=== PATIENT | female | born 1940 | race Caucasian/White ===

== ENCOUNTER 2016-08-27 18:58 | Emergency (ER) | payer BC, OTHER ==
[~2016-08-27] VITALS: Ht 152.4 cm; Wt 71.0 kg
[2016-08-27 19:20] VITALS: Ht 152.4 cm; Wt 71.0 kg
[2016-08-27 20:09] LABS: ADD UMIC YES; UR ASCORBIC ACID NEGATIVE (NEGATIVE); UR BACTERIA MODERATE /HPF (NONE SEEN); UR BILIRUBIN (Dip) NEGATIVE (NEGATIVE); UR BLOOD (Dip) 1+ mg/dL (NEGATIVE); UR CLARITY CLOUDY (CLEAR); UR COLOR YELLOW (YELLOW); UR GLUCOSE (Dip) NEGATIVE (NEGATIVE); UR KETONES (Dip) NEGATIVE (NEGATIVE); UR LEUKOCYTE ESTERASE (Dip) 3+ Leu/ul (NEGATIVE); UR NITRITE (Dip) NEGATIVE (NEGATIVE); UR RBC 8 /HPF (0-5); UR SPECIFIC GRAVITY (Dip) 1.011 (1.003-1.030); UR SQUAMOUS EPITHELIAL CELL FEW /HPF (FEW); UR TOTAL PROTEIN (Dip) NEGATIVE (NEGATIVE); UR UROBILINOGEN (Dip) NEGATIVE (NEGATIVE); UR WBC CLUMPS MANY /HPF (NONE SEEN)
[2016-08-27] MEDS ORDERED: FLUC150T17 PO (20:29)
[2016-08-27] MEDS ORDERED: CEPH-443 PO (20:29)
[2016-08-27] MEDS ORDERED: CLOT30CR24 TOP (20:29)
[2016-08-27] MEDS ORDERED: ACETAMINOPHEN 325 MG TAB PO ONE (20:30)
[2016-08-27] MEDS ORDERED: FLUCONAZOLE 150 MG TAB PO ONE (20:30)
--- NOTE | 2016-08-27 20:41 | ERD ---
ER Documentation Chief Complaint Date/Time DATE: 08/27/16 TIME: 20:32 Chief Complaint vag dc yeast - saw MD already took viral med did not work HPI 76-year-old female with a history of diabetes controlled with metformin, presents to the emergency department for complaints of vaginal itching with white discharge and inflammation 2 weeks. Patient was seen by primary care and recommended to start taking Diflucan and metronidazole topical cream. Patient states that her symptoms have continued despite her treatment regimen. Patient notes associated dysuria and rates her discomfort at a 9 out of 10 constant burning and itching sensation worse with pressure to the area. She denies fever, chills, nausea, vomiting, abdominal pain or diarrhea. Patient states she has an appointment scheduled with an EVALUATION ADVISOR specialist in 1 week but is unable to wait due to her amount of discomfort. ROS All systems reviewed and are negative except as per history of present illness. Medications Home Meds Active Scripts Cephalexin* (Keflex*) 500 Mg Capsule, 500 MG PO QID for 7 Days, CAP Prov:EMMANUEL CLEARY PA-C 08/27/16 Clotrimazole* (Clotrimazole* AF) 1% - 30 Gm Cream.gm., 1 APPLIC TOP BID for 7 Days, TUB Prov:EMMANUEL CLEARY PA-C 08/27/16 Fluconazole* (Diflucan*) 150 Mg Tablet, 150 MG PO ONCE, #1 TAB Prov:EMMANUEL CLEARY PA-C 08/27/16 PMhx/Soc History of Surgery: No Anesthesia Reaction: No Hx Neurological Disorder: No Hx Respiratory Disorders: No Hx Cardiac Disorders: Yes (htn) Hx Psychiatric Problems: No Hx Miscellaneous Medical Probl: No Hx Alcohol Use: No Hx Substance Use: No Hx Tobacco Use: No Smoking Status: Never smoker Physical Exam Vitals Vital Signs Date Time Temp Pulse Resp B/P Pulse Ox O2 Delivery O2 Flow Rate FiO2 08/27/16 19:20 97.8 75 20 136/78 94 Physical Exam Const: Well-developed, well-nourished, in mild distress Head: Atraumatic Eyes: Normal Conjunctiva ENT: Normal External Ears, Nose and Mouth. Neck: Full range of motion..~ No meningismus. Resp: Clear to auscultation bilaterally Cardio: Regular rate and rhythm, no murmurs Abd: Soft, non tender, non distended. Normal bowel sounds Skin: No petechiae or rashes Back: No midline or flank tenderness Ext: No cyanosis, or edema Neur: Awake and alert Psych: Normal Mood and Affect G/U: External vulva is swollen and erythematous with multiple satellite lesions. marked tenderness to palpation. White discharge present. Negative whiff test Results 24 hrs Laboratory Tests Test 08/27/16 19:45 Urine Color YELLOW Urine Clarity CLOUDY Urine pH 5.0 Urine Specific [place] 1.011 Urine Ketones NEGATIVEmg/dL Urine Nitrite NEGATIVEmg/dL Urine Bilirubin NEGATIVEmg/dL Urine Urobilinogen NEGATIVEmg/dL Urine Leukocyte Esterase 3+Yaron/ul Urine Microscopic RBC 8/HPF Urine Microscopic WBC > 182/HPF Urine Squamous Epithelial Cells FEW/HPF Urine Bacteria MODERATE/HPF Urine Hemoglobin 1+mg/dL Urine Glucose NEGATIVEmg/dL Urine Total Protein NEGATIVEmg/dl Procedures/MDM This is a 76-year-old female with a history of diabetes who presents the emergency department for complaints of vaginal itching with discharge 2 weeks. This bite patient's attempted to treat her symptoms with fluconazole and topical antifungal cream she has continued to experience symptoms. Patient well -appearing with stable vitals upon arrival. Physical exam with evidence of a fungal rash to the vaginal area consistent with candidiasis. Urinalysis was positive for 3+ leukoesterase and 1+ hematuria consistent with a urinary tract infection. Sample was sent for culture. At this time low suspicion for severe systemic infection or sepsis. Patient received 1 dose of fluconazole and Tylenol while in the emergency department. Patient to begin antibiotics for urinary tract infection. Instruct the patient to follow-up with her EVALUATION ADVISOR in 1 week as previously scheduled. Based on patient's history of present illness and physical examination the decision was made to discharge. The patient was re-evaluated after ED treatment and stabilizing measures, and symptoms have improved. There is no evidence of life threatening injuries or illnesses at this time. On re-examination, patient resting in no distress, stable vital signs, reports feeling better and safe for discharge with outpatient follow up with PMD in 1-2 days. Patient given return precautions. Departure Diagnosis: Primary Impression: Dysuria Additional Impressions: Vaginal itching Yeast infection UTI (urinary tract infection) Urinary tract infection type: acute cystitis Hematuria presence: with hematuria Qualified Code: N30.01 - Acute cystitis with hematuria Condition: Good Patient Instructions: Understanding Urinary Tract Infections (UTIs), Vaginal Infection: Yeast (Candidiasis) Additional Instructions: Call your primary care doctor TOMORROW for an appointment during the next 1-2 days.See the doctor sooner or return here if your condition worsens before your appointment time. EMMANUEL CLEARY PA-C Aug 27, 2016 20:34
== END 2016-08-27 21:10 | disposition home or self-care (01) ==
LOC: FTE 18:58
DX: R30.0 Dysuria (principal); B37.9 Candidiasis, unspecified; N30.01 Acute cystitis with hematuria; I10 Essential (primary) hypertension; E11.9 Type 2 diabetes mellitus without complications; Z79.84 Long term (current) use of oral hypoglycemic drugs
CPT/HCPCS: 81001; 87086; 99284